=== PATIENT | female | born 1995 | race Caucasian/White ===

== ENCOUNTER 2017-06-17 10:26 | Emergency (ER) | payer OTHER ==
--- NOTE | 2017-06-17 10:30 | ED Physician Documentation ---
General Adult - HISTORIAN Historian: patient - HPI Stated Complaint: right calf pain Chief Complaint: Lower Extremity Problem Onset: minutes (35) Timing: still present Severity: mild Further Comments: yes (She states she was stretching at PT and she notes a pain that felt like cramping in her right calf. She states the PT put a band on the area to help with a pulled muscle but due to her not having a PCP she was encouraged to come to the ER. She is 28 weeks . She denies any redness warmth. She denies any history of any blood clotting disorders or previous blood clots. She has not tried any OTC meds for pain. She is aware of what meds she can take due to . No long car rides or airplane rides historically. She does feel she could be low on fluid volume) - ROS CONST: no problems EYES/ENT: none CVS/RESP: denies: chest pain, shortness of breath GI/: denies: vomiting, nausea, diarrhea MS/SKIN/LYMPH: calf pain (after stretching ). denies: rash NEURO/PSYCH: denies: headache, fainting, dizziness - PAST HX Past History: none Other History: none Surgeries/Procedures: other Immunizations: UTD Allergies/Adverse Reactions: Allergies Allergy/AdvReac Type Severity Reaction Status Date / Time No Known Allergies Allergy Verified 03/17/17 19:37 Home Medications: Ambulatory Orders Medication Instructions Recorded NK [NK] 03/17/17 - SOCIAL HX Smoking History: non-smoker Alcohol Use: none Drug Use: none - FAMILY HX Family History: No - VITAL SIGNS Vital Signs: Vital Signs Temp Pulse Resp BP Pulse Ox 116/62 03/17/17 20:30 - REVIEWED ASSESSMENTS Nursing Assessment Reviewed: Yes Vitals Reviewed: Yes General Adult Physical Exam - PHYSICAL EXAM GENERAL APPEARANCE: no distress EENT: eye inspection normal NECK: normal inspection RESPIRATORY: no resp distress, chest non-tender, breath sounds normal CVS: reg rate & rhythm, heart sounds normal, equal pulses, no murmur ABDOMEN: soft, normal bowel sounds SKIN: warm/dry, normal color, other (right lower leg. No redness. mild pain with palpation. FROM. Pulses + Senstion + pulses + ) EXTREMITIES: normal range of motion, no evidence of injury, no edema NEURO: oriented X3, CN's nml as tested, motor nml, sensation nml, mood/affect nml Discharge Clincal Impression: Leg pain Qualifiers: Laterality: right Qualified Code(s): M79.604 - Pain in right leg Referrals: Primary Doctor,No [Primary Care Provider] - 2 Days Comments: 1. Continue to stretch 2. Increase fluids 3. See PCP or OB in 24 hours 4. Return to ER for any changes in pain (redness in area , increase pain, edema , swelling) Condition: Stable Disposition: 01 HOME, SELF-CARE Decision to Admit: NO Date of Decison to Admit: 06/17/17 Decision Time: 10:59
[2017-06-17 10:46] VITALS: BP 124/77
== END 2017-06-17 11:05 | disposition home or self-care (01) ==
LOC: ED 10:26
DX: M79.604 Pain in right leg (principal); Z33.1 Pregnant state, incidental
CPT/HCPCS: 99282

== ENCOUNTER 2018-01-22 13:33 | Emergency (ER) | payer OTHER ==
[2018-01-22 14:05] VITALS: BP 107/73
--- NOTE | 2018-01-22 15:05 | ED Physician Documentation ---
General Adult - HISTORIAN Historian: patient - HPI Stated Complaint: Back pain Chief Complaint: General Adult Additional Information: Cleaning floor at work at [employer] last evening and tripped over drain in floor. Hit her right glut on the corner of a fryer. Took tylenol last evening Took 400 mg ibuprofen today as well as a flexeril tablet and has not had any relief of her pain. No numbness, tingling, bowel/bladder control, paralysis, weakness. No other modifying factors or associated signs. - ROS CONST: no problems - PAST HX Past History: other ("back problems") Allergies/Adverse Reactions: Allergies Allergy/AdvReac Type Severity Reaction Status Date / Time No Known Drug Allergies Allergy Verified 01/22/18 14:05 Home Medications: Ambulatory Orders Medication Instructions Recorded NK 03/17/17 - SOCIAL HX Smoking History: non-smoker - FAMILY HX Family History: Yes - VITAL SIGNS Vital Signs: Vital Signs Temp Pulse Resp BP Pulse Ox 98.0 F 95 H 14 107/73 99 01/22/18 13:40 01/22/18 13:40 01/22/18 13:40 01/22/18 13:40 01/22/18 13:40 - REVIEWED ASSESSMENTS Nursing Assessment Reviewed: Yes Vitals Reviewed: Yes ED Results Lab/Radiology - Orders Orders: ED Orders Category Date Time Status Ketorolac Tromethamine [Toradol] Med 01/22/18 14:59 Once 60 mg IM NOW ONE Orphenadrine Citrate [Norflex] Med 01/22/18 14:59 Once 60 mg IM NOW ONE General Adult Physical Exam - PHYSICAL EXAM GENERAL APPEARANCE: mild distress (anxious) EENT: eye inspection normal, ENT inspection normal NECK: normal inspection, supple RESPIRATORY: no resp distress, breath sounds normal CVS: reg rate & rhythm, heart sounds normal, no murmur ABDOMEN: soft, normal bowel sounds BACK: normal inspection, no CVA tenderness, other (no vertebral tenderness. No spasm identified. No ecchymosis. Full lateral lumbar flexion, extension. Pain with 40 degrees flexion. ) SKIN: warm/dry, normal color (1 3 mm red papule right mid glut) EXTREMITIES: normal range of motion (gait and stance. except moves slowly), no evidence of injury NEURO: CN's nml as tested, motor nml, sensation nml, other (reflexes 2+) Discharge Clincal Impression: Contusion Referrals: Primary Doctor,No [Primary Care Provider] - 2 Days Condition: Good Disposition: 01 HOME, SELF-CARE Decision to Admit: NO Decision Time: 15:12
[2018-01-22] MEDS: KETOROLAC TROMETHAMINE 60 MG/2 ML VIAL IM ONE (15:11)
[2018-01-22] MEDS: ORPHENADRINE CITRATE 60 MG/2ML IM ONE (15:11)
== END 2018-01-22 15:21 | disposition home or self-care (01) ==
LOC: ED 13:33
DX: S30.0XXA Contusion of lower back and pelvis, initial encounter (principal); W22.8XXA Striking against or struck by other objects, initial encounter; Y92.512 Supermarket, store or market as the place of occurrence of the external cause; Y93.9 Activity, unspecified; Y99.9 Unspecified external cause status
CPT/HCPCS: J1885; J2360; 96372; 99283

== ENCOUNTER 2018-04-11 12:20 | Emergency (ER) | payer OTHER ==
[2018-04-11 12:47] VITALS: BP 126/72
--- NOTE | 2018-04-11 12:53 | ED Physician Documentation ---
Upper Extremity Injury - HISTORIAN Historian: patient - HPI Stated Complaint: Wrist pain Chief Complaint: Upper Extremity Injury Additional Information: trunk lid fell on rt wrist last noct min swelling tenderness no discoloration Onset: yesterday Where: home Severity: moderate Duration: persistent since Context: crush Associated Symptoms: tingling, numbness distally. denies: loss of power to arms Modifying Factors: pain on movement - ROS CONST: no problems CVS/RESP: none NEURO: none MS/SKIN/LYMPH: none GI/: denies: problems urinating, nausea - PAST HX Past History: none Immunizations: UTD Allergies/Adverse Reactions: Allergies Allergy/AdvReac Type Severity Reaction Status Date / Time No Known Drug Allergies Allergy Verified 01/22/18 14:05 Home Medications: Ambulatory Orders Medication Instructions Recorded NK 03/17/17 - SOCIAL HX Smoking History: non-smoker Alcohol Use: none Drug Use: none - FAMILY HX Family History: no significant history - VITAL SIGNS Vital Signs: Vital Signs Temp Pulse Resp BP Pulse Ox 98.1 F 86 16 126/72 95 04/11/18 12:25 04/11/18 12:25 04/11/18 12:25 04/11/18 12:25 04/11/18 12:25 - REVIEWED ASSESSMENTS Nursing Assessment Reviewed: Yes Vitals Reviewed: Yes ED Results Lab/Radiology - Radiology Radiology Impressions: NO FRACTURE - Orders Orders: ED Orders Category Date Time Status WRIST 3 VIEWS OR MORE [RAD] Stat Exams 04/11/18 Completed Upper Extremity Injury Physic - Physical Exam General Appearance: mild distress Hand: bone tenderness, limited ROM, soft tissue tenderness, swelling. No: normal ROM, asymmetry, deformity, ecchymosis, infection, laceration Wrist: bone tenderness, limited ROM, soft tissue tenderness Elbow/Forearm: normal inspection Shoulder: normal inspection Neuro/Vascular/Tendon: no vascular compromise Skin: warm,dry. No: diaphoretic, cool, cyanotic, decubitus Head/ENT: nml inspection Resp/CVS: chest non-tender, breath sounds nml, heart sounds nml, lungs clear Abdomen: non-tender Discharge Clincal Impression: CONTUSION CRUSH INJURY WRIST Referrals: Primary Doctor,No [Primary Care Provider] - 2 Days Condition: Good Disposition: 01 HOME, SELF-CARE Decision to Admit: NO Decision Time: 13:50
--- NOTE | 2018-04-11 18:44 | Diagnostic Imaging Report ---
SCOTTY POWELL [facility] [address] [facility].[address] [id number] Report Submission Date: Apr 11, 2018 1:19:42 PM [employer] Patient Study Name: KENAN SMART Date: Apr 11, 2018 12:46:35 PM [employer] Modality Type: DX Gender: F Description: UPPER EXTREMITY : 95 Institution: [facility] Physician: SCOTTY POWELL Examination: Plain film right wrist History: RT WRIST, LATERAL WRIST PAIN AFTER HITTING WRIST ON CAR TRUNK TODAY Comparison exams: None available Findings: 3 views of the right wrist demonstrate normal cortical margins. No fracture. No dislocation. No soft tissue abnormality. Impression: No acute osseous abnormality Electronically signed on Apr 11, 2018 1:19:42 PM [employer] by: Pavan ALANIZ
== END 2018-04-11 14:15 | disposition home or self-care (01) ==
LOC: ED 12:20
DX: S60.211A Contusion of right wrist, initial encounter (principal); W23.0XXA Caught, crushed, jammed, or pinched between moving objects, initial encounter; Y93.9 Activity, unspecified; Y92.009 Unspecified place in unspecified non-institutional (private) residence as the place of occurrence of the external cause; Y92.810 Car as the place of occurrence of the external cause
CPT/HCPCS: 73110; 99282; 99283